=== PATIENT | female | born 1985 | race Caucasian/White ===

== ENCOUNTER → 2023-08-31 11:48 | Outpatient (REF) | payer BC, SELFPAY | LOC: HWRAD 11:48 | PROVIDERS: ATTENDING PHYSICIAN Chiropractor; FAMILY PHYSICIAN Family Medicine | DX: M54.6 Pain in thoracic spine (principal) | CPT/HCPCS: 72072 ==

== ENCOUNTER → 2023-11-26 13:27 | Outpatient (REF) | payer BC, SELFPAY | LOC: RAD 13:27 | PROVIDERS: ATTENDING PHYSICIAN Physician Assistant Medical; FAMILY PHYSICIAN Family Medicine | DX: M79.661 Pain in right lower leg (principal) | CPT/HCPCS: 93971 ==